=== PATIENT | male | born 1965 | race Caucasian/White ===

== ENCOUNTER 2021-09-05 21:31 | Inpatient (IN) | payer OTHER ==
[2021-09-05] MEDS ORDERED: METOPROLOL TARTRATE 50 MG TABLET (FP) PO ONE (22:45)
[2021-09-05] MEDS ORDERED: METOPROLOL TARTRATE 50 MG TABLET (FP) ONE (23:06)
[2021-09-05 23:14] LABS: BASO % 0.5 % (0-2.0); EOS % 0.1 % (0-4.5); HEMATOCRIT 33.9 % (35.4-49); HEMOGLOBIN 10.3 GM/dL (11.7-16.9); LYMPH % 8.3 % (8-40); MCH 21.2 pg (25.7-33.7); MCHC 30.3 g/dl (32.0-35.9); MEAN CELL VOLUME 69.8 fl (80-96); MEAN PLT VOLUME 7.8 fl (7.5-11.1); MONO % 7.5 % (3.8-10.2); NEUT % 83.6 % (42.8-82.8); PLATELET COUNT 688 10^3/uL (134-434); RBC 4.85 M/mm3 (4.00-5.60); RDW 30.8 % (11.9-15.9); WHITE BLOOD COUNT 15.8 K/mm3 (4.0-10.0)
[2021-09-05] MEDS ORDERED: APIXABAN 5 MG TABLET ONE (23:25)
[2021-09-05 23:27] LABS: INR 1.19 (0.83-1.09); PROTHROMBIN TIME (PATIENT) 13.7 SEC (9.7-13.0)
[2021-09-05] MEDS: APIXABAN 5 MG TABLET PO SCH (23:27)
[2021-09-05 23:36] LABS: ANISOCYTOSIS 3+; PLATELET ESTIMATE INCREASED
[2021-09-05 23:50] LABS: N-TERMINAL BNP 1026.2 pg/ml (5-125)
[2021-09-05 23:58] LABS: CHLORIDE 76 mmol/L (98-107); SODIUM 124 mmol/L (136-145)
[2021-09-06] LABS: CALCIUM 8.8 mg/dL (8.5-10.1)
[2021-09-06 00:01] LABS: ALBUMIN 3.5 g/dl (3.4-5.0); ANION GAP 13 MMOL/L (8-16); BLOOD UREA NITROGEN 31.9 mg/dL (7-18); CO2 35 mmol/L (21-32)
[2021-09-06] MEDS ORDERED: dilTIAZem HCL 50 MG/10 ML - 10 ML VIAL IVPUSH ONE (00:02)
[2021-09-06 00:04] LABS: CREATININE 1.7 mg/dL (0.55-1.3); SGOT/AST 15 U/L (15-37); SGPT/ALT 27 U/L (13-61)
[2021-09-06 00:06] LABS: BILIRUBIN,TOTAL 0.6 mg/dL (0.2-1); TOT PROT 7.9 g/dl (6.4-8.2)
[2021-09-06 00:07] LABS: ALK PHOS 163 U/L (45-117)
[2021-09-06] MEDS ORDERED: MAGNESIUM OXIDE 400 MG TABLET (FP) PO ONE (00:20)
[2021-09-06 00:23] LABS: GLUCOSE,RANDOM 716 mg/dL (74-106)
[2021-09-06] MEDS: INSULIN SLIDING SCALE (NOVOLOG) 1 VIAL SQ SCH ×5 (00:29→21:34)
[2021-09-06] MEDS: INSULIN (LEVEMIR) 100 UNITS/ML UNITS SQ SCH ×2 (00:29→21:11)
[2021-09-06] MEDS ORDERED: POTASSIUM CHLORIDE TABS 20 MEQ TABLET.ER (FP) PO ONE ×2 (00:31→00:38)
[2021-09-06] MEDS ORDERED: POTASSIUM CHLORIDE 20 MEQ PREMIX IVPB 100 ML IVPB ONE (00:31)
[2021-09-06] MEDS ORDERED: KCL 10 MEQ IVPB 10 MEQ/100 ML INFUS.BAG IVPB ONE (00:43)
[2021-09-06 02:27] LABS: CHLORIDE 82 mmol/L (98-107); SODIUM 127 mmol/L (136-145)
[2021-09-06 02:29] LABS: ANION GAP 11 MMOL/L (8-16); BLOOD UREA NITROGEN 32.5 mg/dL (7-18); CALCIUM 8.5 mg/dL (8.5-10.1); CO2 35 mmol/L (21-32)
[2021-09-06 02:33] LABS: CREATININE 1.5 mg/dL (0.55-1.3)
[2021-09-06 02:36] LABS: GLUCOSE,RANDOM 448 mg/dL (74-106)
[2021-09-06 03:24] LABS: VENOUS BASE EXCESS 6.8 mmol/L (-2-2); VENOUS PCO2 51.1 mmHg (38-52); VENOUS PH 7.419 (7.310-7.410)
[2021-09-06] MEDS ORDERED: METOPROLOL TARTRATE 5 MG/5 ML VIAL IVPUSH ONE ×3 (04:08→08:29)
[2021-09-06] MEDS ORDERED: METOPROLOL TARTRATE 5 MG/5 ML VIAL ONE ×3 (04:42→08:12)
[2021-09-06 06:42] LABS: URINE APPEARANCE CLEAR; URINE BILIRUBIN NEGATIVE (NEGATIVE); URINE COLOR YELLOW; URINE GLUCOSE (UA) 3+ (NEGATIVE); URINE KETONE TRACE (NEGATIVE); URINE LEUK ESTERASE NEGATIVE (NEGATIVE); URINE NITRITE NEGATIVE (NEGATIVE); URINE PROTEIN NEGATIVE (NEGATIVE)
[2021-09-06] MEDS ORDERED: APIXABAN 5 MG TABLET ONE (10:06)
[2021-09-06] MEDS ORDERED: PANTOPRAZOLE 40 MG TABLET ONE (10:06)
[2021-09-06] MEDS ORDERED: TAMSULOSIN HCL 0.4 MG CAP ONE (10:07)
[2021-09-06] MEDS: APIXABAN 5 MG TABLET PO SCH ×2 (10:11→21:11)
[2021-09-06] MEDS: TAMSULOSIN HCL 0.4 MG CAP PO SCH (10:11)
[2021-09-06] MEDS: PANTOPRAZOLE 40 MG TABLET PO SCH (10:11)
[2021-09-06 11:44] LABS: BASO % 0.6 % (0-2.0); EOS % 0.8 % (0-4.5); HEMATOCRIT 35.5 % (35.4-49); HEMOGLOBIN 10.5 GM/dL (11.7-16.9); LYMPH % 13.3 % (8-40); MCH 20.6 pg (25.7-33.7); MCHC 29.5 g/dl (32.0-35.9); MEAN PLT VOLUME 7.5 fl (7.5-11.1); NEUT % 78.3 % (42.8-82.8); PLATELET COUNT 654 10^3/uL (134-434); RBC 5.07 M/mm3 (4.00-5.60); RDW 31.1 % (11.9-15.9); WHITE BLOOD COUNT 17.5 K/mm3 (4.0-10.0)
[2021-09-06 12:12] LABS: CALCIUM 9.2 mg/dL (8.5-10.1)
[2021-09-06 12:13] LABS: ALBUMIN 3.5 g/dl (3.4-5.0)
[2021-09-06 12:16] LABS: CREATININE 1.3 mg/dL (0.55-1.3)
[2021-09-06 12:17] LABS: BILIRUBIN,TOTAL 0.6 mg/dL (0.2-1); TOT PROT 7.7 g/dl (6.4-8.2)
[2021-09-06] MEDS ORDERED: METOPROLOL TARTRATE 50 MG TABLET (FP) PO ONE (12:17)
[2021-09-06] MEDS ORDERED: DIGOXIN 0.5 MG/2 ML AMPUL IVPUSH ONE (14:12)
[2021-09-06] MEDS ORDERED: SODIUM CHLORIDE 1,000 ML IV STA (14:17)
[2021-09-06] MEDS ORDERED: DIGOXIN 0.5 MG/2 ML AMPUL ONE (14:19)
[2021-09-06] MEDS ORDERED: LEVALBUTEROL HCL 0.31 MG/3 ML VIAL.NEB IH PRN (17:38)
[2021-09-06] MEDS: DIGOXIN 0.5 MG/2 ML AMPUL IVPUSH SCH (21:11)
[2021-09-06] MEDS ORDERED: ATORVASTATIN CA 20 MG TABLET (FP) PO SCH (22:00)
[2021-09-06] MEDS: BUDESONIDE/FORMETEROL FUMARATE 160/4.5 mcg INHALER IH SCH (22:58)
[2021-09-07] MEDS: DIGOXIN 0.5 MG/2 ML AMPUL IVPUSH SCH ×3 (03:13→14:18)
[2021-09-07 05:30] VITALS: BMI 31.1
[2021-09-07] MEDS: INSULIN SLIDING SCALE (NOVOLOG) 1 VIAL SQ SCH ×4 (07:09→21:24)
[2021-09-07] MEDS: PANTOPRAZOLE 40 MG TABLET PO SCH (09:42)
[2021-09-07] MEDS: APIXABAN 5 MG TABLET PO SCH (09:42)
[2021-09-07] MEDS: TAMSULOSIN HCL 0.4 MG CAP PO SCH (09:43)
[2021-09-07] MEDS ORDERED: METOPROLOL TARTRATE 50 MG TABLET (FP) PO SCH ×2 (10:00→22:00)
[2021-09-07] MEDS ORDERED: TAMSULOSIN HCL 0.4 MG CAP PO SCH (12:00)
[2021-09-07] MEDS ORDERED: LISINOPRIL 10 MG TABLET PO SCH (12:00)
[2021-09-07] MEDS ORDERED: PANTOPRAZOLE 40 MG TABLET PO SCH (12:00)
[2021-09-07] MEDS ORDERED: DULoxetine HCL 30 MG CAPSULE.DR PO SCH (12:00)
[2021-09-07] MEDS ORDERED: BUPRENORPHINE/NALOXONE 8 MG/2 MG FILM PACKET SL SCH ×2 (12:00→12:20)
[2021-09-07] MEDS: GABAPENTIN 300 MG CAPSULE PO SCH ×3 (12:19→21:24)
[2021-09-07] MEDS: BUDESONIDE/FORMETEROL FUMARATE 160/4.5 mcg INHALER IH SCH ×2 (12:25→21:24)
[2021-09-07] MEDS: INSULIN (LEVEMIR) 100 UNITS/ML UNITS SQ SCH ×2 (13:57→22:17)
[2021-09-07] MEDS ORDERED: BUPRENORPHINE/NALOXONE 8 MG/2 MG FILM PACKET SL ONE (14:30)
[2021-09-07] MEDS ORDERED: PATIENT'S OWN MEDICATION (NON-FORMULARY) (Insulin Glargine,Hum.Rec.Anlog [Basaglar Kwikpen SQ SCH (16:30)
[2021-09-07] MEDS ORDERED: INSULIN (LEVEMIR) 100 UNITS/ML UNITS SQ SCH (22:00)
[2021-09-07] MEDS ORDERED: ATORVASTATIN CA 10 MG TABLET (FP) PO SCH (22:00)
[2021-09-07] MEDS ORDERED: APIXABAN 5 MG TABLET PO SCH (22:00)
[2021-09-07] MEDS ORDERED: LEVALBUTEROL HCL 0.31 MG/3 ML VIAL.NEB IH PRN (23:05)
[2021-09-08 01:24] VITALS: TEMP 98.1
[2021-09-08 03:26] VITALS: BP 122/68; PULSE 82
[2021-09-08] MEDS ORDERED: GABAPENTIN 300 MG CAPSULE PO SCH (06:00)
[2021-09-08] MEDS ORDERED: INSULIN SLIDING SCALE (NOVOLOG) 1 VIAL SQ SCH (07:00)
[2021-09-08] MEDS ORDERED: TAMSULOSIN HCL 0.4 MG CAP PO SCH (08:30)
[2021-09-08] MEDS ORDERED: DULoxetine HCL 30 MG CAPSULE.DR PO SCH (10:00)
[2021-09-08] MEDS ORDERED: PANTOPRAZOLE 40 MG TABLET PO SCH (10:00)
[2021-09-08] MEDS ORDERED: BUDESONIDE/FORMETEROL FUMARATE 160/4.5 mcg INHALER IH SCH (10:00)
[2021-09-08] MEDS ORDERED: BUPRENORPHINE/NALOXONE 8 MG/2 MG FILM PACKET SL SCH (10:00)
[2021-09-08] MEDS ORDERED: LISINOPRIL 10 MG TABLET PO SCH (10:00)
[2021-09-08] MEDS ORDERED: APIXABAN 5 MG TABLET PO SCH (10:00)
[2021-09-08] MEDS ORDERED: METOPROLOL TARTRATE 50 MG TABLET (FP) PO SCH (10:00)
[2021-09-08] MEDS ORDERED: ATORVASTATIN CA 10 MG TABLET (FP) PO SCH (22:00)
== END 2021-09-08 03:34 | disposition short-term general hospital (02) | DRG 201 ==
LOC: JER 21:31 → JERBED 09-06 02:32 → JICU 09-06 18:36 → J4S 09-07 22:08
PROVIDERS: ADMIT Internal Medicine; ATTEND Family Medicine
DX: I48.92 Unspecified atrial flutter (principal); N17.9 Acute kidney failure, unspecified; E11.65 Type 2 diabetes mellitus with hyperglycemia; E87.1 Hypo-osmolality and hyponatremia; F11.20 Opioid dependence, uncomplicated; I11.0 Hypertensive heart disease with heart failure; Q28.2 Arteriovenous malformation of cerebral vessels; I50.32 Chronic diastolic (congestive) heart failure; E87.6 Hypokalemia; I25.10 Atherosclerotic heart disease of native coronary artery without angina pectoris; N40.0 Benign prostatic hyperplasia without lower urinary tract symptoms; E86.9 Volume depletion, unspecified; E66.9 Obesity, unspecified; Z68.31 Body mass index [BMI] 31.0-31.9, adult
CPT/HCPCS: 36415; 71045-TC-FY; 80048; 80053; 81003; 82010; 82272; 82803; 82962; 83036; 83735; 83880; 84484; 85025; 85610; 87086; 93005; 93010; 99285-25; C9803; U0003; U0005